=== PATIENT | female | born 1965 | race Caucasian/White ===

== ENCOUNTER → 2024-11-08 | Outpatient (CLI) | payer OTHER ==
[~2024-11-08] MED LIST: CATAFLAM50 MG PO
== END | disposition home or self-care (01) ==
LOC: MAMO-SONO 11:56
PROVIDERS: ATTEND Radiology Diagnostic Radiology
DX: Z12.31 Encounter for screening mammogram for malignant neoplasm of breast (principal)

== ENCOUNTER 2025-11-20 08:36 | Outpatient (CLI) | payer OTHER | END 2025-11-20 08:49 | disposition home or self-care (01) | LOC: MAMO-SONO 08:36 | PROVIDERS: ATTEND Obstetrics & Gynecology | DX: N64.4 Mastodynia (principal) ==